=== PATIENT | female | born 1950 | race Caucasian/White ===

== ENCOUNTER 2018-06-19 14:51 | Emergency (ER) | payer MEDICARE ==
[~2018-06-19] VITALS: Ht 175.3 cm; Wt 90.7 kg
[2018-06-19] MEDS: TETANUS,DIPTH,PERTUSS P/F (BOOSTRIX) 0.5 ML VIAL IM ONE ×2 (13:37→16:37)
[~2018-06-19 14:51] MED LIST: ACHD5005 PO; BENZ100C18 PO; CYCL10TA9 PO; D-ME118S7 PO; DOXY100C42 PO; METH4TAB PO; PRD20T PO
[2018-06-19] MEDS ORDERED: ONDANSETRON 4 MG/2 ML (SDV) Z0FRAN ONE (14:59)
[2018-06-19] MEDS ORDERED: ONDANSETRON 4 MG/2 ML (SDV) Z0FRAN IVP ONE (15:15)
[2018-06-19] MEDS ORDERED: NS 250 ML (IVPB) BAG IV ONE (15:15)
[2018-06-19] MEDS ORDERED: IOHEXOL 350 MG/ML 100 ML (OMNIPAQUE 350) VIAL IV ONE (15:15)
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
[2018-06-19] MEDS ORDERED: GABA-488 (16:00)
[2018-06-19] MEDS ORDERED: TRAM50TA2 (16:00)
[2018-06-19] MEDS ORDERED: LOSA25TA6 (16:00)
[2018-06-19] MEDS ORDERED: OMEP20CA12 (16:00)
[2018-06-19] MEDS ORDERED: LOSA50TA7 (16:00)
[2018-06-19] MEDS ORDERED: TIZA2TAB3 (16:00)
[2018-06-19] MEDS ORDERED: DICL50TA6 (16:00)
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
[2018-06-19] MEDS: TETANUS,DIPTH,PERTUSS P/F (BOOSTRIX) 0.5 ML VIAL IM STA ×2 (16:34→16:35)
[2018-06-19 16:35] LABS: HEMOGLOBIN 13.6 G/DL (11.5-16.0); MEAN PLATELET VOLUME 10.5 FL (7.4-10.4); RED BLOOD COUNT 4.57 10^6/uL (4.35-5.85); RED CELL DISTRIBUTION WIDTH 13.2 % (10.0-14.5); WHITE BLOOD COUNT 6.7 10^3/uL (4.3-11.0)
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
[2018-06-19 16:42] LABS: FIBRIN DEGRADATION PRODUCTS 2.16 UG/ML (0.00-0.49); PROTHROMBIN TIME PATIENT 13.1 SEC (12.2-14.7)
[2018-06-19 16:52] LABS: ALANINE AMINOTRANSFERASE 28 U/L (0-55); ALBUMIN 3.7 GM/DL (3.2-4.5); ALKALINE PHOSPHATASE 68 U/L (40-136); BILIRUBIN,DIRECT 0.2 MG/DL (0.0-0.3); BILIRUBIN,INDIRECT 0.4 MG/DL; BILIRUBIN,TOTAL 0.6 MG/DL (0.1-1.0); BUN/CREATININE RATIO 12; CALCIUM 8.9 MG/DL (8.5-10.1); CARBON DIOXIDE 23 MMOL/L (21-32); CHLORIDE 107 MMOL/L (98-107); CREATINE KINASE 213 U/L (29-168); CREATININE SERUM 0.97 MG/DL (0.60-1.30); GFR ESTIMATED 57; GLUCOSE 98 MG/DL (70-105); MAGNESIUM 1.9 MG/DL (1.8-2.4); PHOSPHORUS 3.1 MG/DL (2.3-4.7); POTASSIUM 3.9 MMOL/L (3.6-5.0); SODIUM 141 MMOL/L (135-145); TOTAL PROTEIN 6.7 GM/DL (6.4-8.2)
[2018-06-19 17:08] VITALS: BP 146/84
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
== END 2018-06-19 17:08 | disposition short-term general hospital (02) ==
LOC: ER 14:51 → EDUNIT# 14:51 → ER 17:08
DX: S06.0X9A Concussion with loss of consciousness of unspecified duration, initial encounter (principal); S16.1XXA Strain of muscle, fascia and tendon at neck level, initial encounter; S39.012A Strain of muscle, fascia and tendon of lower back, initial encounter; S23.3XXA Sprain of ligaments of thoracic spine, initial encounter; S30.1XXA Contusion of abdominal wall, initial encounter; S40.021A Contusion of right upper arm, initial encounter; S60.511A Abrasion of right hand, initial encounter; S60.419A Abrasion of unspecified finger, initial encounter; I10 Essential (primary) hypertension; K21.9 Gastro-esophageal reflux disease without esophagitis; F17.210 Nicotine dependence, cigarettes, uncomplicated; Z90.13 Acquired absence of bilateral breasts and nipples; Z85.3 Personal history of malignant neoplasm of breast; Z92.21 Personal history of antineoplastic chemotherapy; Z23 Encounter for immunization; Z86.718 Personal history of other venous thrombosis and embolism; Z88.8 Allergy status to other drugs, medicaments and biological substances; Z91.048 Other nonmedicinal substance allergy status; V43.63XA Car passenger injured in collision with pick-up truck in traffic accident, initial encounter; Y92.411 Interstate highway as the place of occurrence of the external cause
CPT/HCPCS: 36415; 70450; 71045; 71260; 72125; 72128; 72131; 73060; 74177; 80048; 80076; 80320; 82550; 83605; 83735; 84100; 84484; 85027; 85379; 85384; 85610; 85730; 86850; 86900; 86901; 86920; 90715

== ENCOUNTER 2021-12-06 05:50 | Outpatient (CLI) | payer MEDICARE ==
[~2021-12-06] VITALS: Ht 175.3 cm; Wt 89.4 kg
[~2021-12-06 05:50] MED LIST changes: +CYCL10TA25 PO; -CYCL10TA9 PO; -D-ME118S7 PO; +DICL50TA6; +DOXY-311 PO; -DOXY100C42 PO; +GABA-488; +LOSA25TA41; +LOSA50TA63; +OMEP20CA18; +PROM118S5 PO; +TIZA-169; +TRM50T
[2021-12-06] MEDS ORDERED: ACHD5005 PO (09:37)
== END 2021-12-06 11:10 | disposition home or self-care (01) ==
LOC: PREOP 05:50 → EDSTATUS 13:00
PROVIDERS: ATTEND Surgery
DX: Z01.818 Encounter for other preprocedural examination (principal)

== ENCOUNTER 2021-12-13 10:21 | Day surgery (SDC) | payer MEDICARE ==
[~2021-12-13] VITALS: Ht 175 cm; Wt 89.4 kg
[2021-12-13] MEDS ORDERED: LACTATED RINGERS 1,000 ML IV ONE (10:29)
[2021-12-13] MEDS ORDERED: LACTATED RINGERS 1,000 ML IV STA (10:32)
[2021-12-13] MEDS ORDERED: HURRICAINE EXT TUBE (BENZOCAINE) XX PRN (10:45)
[2021-12-13 10:50] VITALS: BP 151/72
--- NOTE | 2021-12-13 10:54 | Progress Note-Pre Operative ---
Pre-Operative Progress Note H&P Reviewed The H&P was reviewed, patient examined and no changes noted. Time Seen by Provider: 10:53 Date H&P Reviewed: Dec 13, 2021 Time H&P Reviewed: 10:53 Pre-Operative Diagnosis: Chronic Gastritis, Screening colonoscopy DARWIN DRAKE DO Dec 13, 2021 10:54
[2021-12-13] MEDS ORDERED: MIDAZOLAM 2 MG/2 ML (VERSED) VIAL ONE (11:59)
[2021-12-13] MEDS ORDERED: PROPOFOL INJECTION 50 ML IV ONE (11:59)
[2021-12-13 12:35] VITALS: BP 150/66
[2021-12-13 12:40] VITALS: BP 138/64
[2021-12-13 12:42] VITALS: BP 138/64
--- NOTE | 2021-12-13 12:50 | Progress Note-Post Operative ---
Post-Operative Progess Note Surgeon (s)/Food Safety Director (s) Surgeon DARWIN DRAKE DO Food Safety Director: none Pre-Operative Diagnosis Chronic Gastritis, Screening colonoscopy Post-Operative Diagnosis Gastritis Hiatal hernia Polyps diverticula int hemorrhoids Procedure & Operative Findings Date of Procedure 12/13/21 Procedure Performed/Findings EGD with bx Colonoscopy with cold bx PROCEDURE NOTE: After informed consent was obtained, the patient was brought to the endoscopy suite, placed in bed in left lateral decubitus position. She was administered IV sedation by the SHOWROOM CONSULTANT who then monitored vitals the entire time, heart rate, blood pressure and pulse ox and the scope was inserted down the mouth through the esophagus into the stomach. On the way down, noted some mild esophagitis, took a picture, pushed into the stomach, pushed past the antrum into the duodenum. Duodenum looked good. Pulled back and did a biopsy of antrum, then retroflexed the scope, saw small hiatal hernia, took a picture of this and then pulled the scope into the GE junction, took another picture of the esophagitis and then did a biopsy of the GE junction. Pushed the scope back into the stomach, suctioned all the air out of the stomach. At this point pulled the scope up the esophagus and out the mouth. Switched camera, switched gloves, went down below, started the colonoscopy. Pushed all the way into about 140 cm to get all the way to cecum, took a picture of the appendiceal orifice, noted the ileocecal valve and then slowly withdrew the scope, insufflating to look circumferentially at the bray starting in the cecum, up the ascending colon to the hepatic flexure, then down the transverse colon. Saw a small flat polyp here and elected to remove with cold biopsy. Continued down to the splenic flexure, into the descending colon where I found another polyp; also removed with cold biopsy. Finally down into the sigmoid (took picture of diverticula) and into the rectum, retroflexed in the rectal vault, saw some minimal internal hemorrhoids and took a picture of this. The patient tolerated the procedure and she recovered in the endoscopy suite. Anesthesia Type IV sedation by SHOWROOM CONSULTANT Estimated Blood Loss Estimated blood loss (mL): scant Specimens/Packing Specimens Removed antral bx GE jxn bx Transverse colon polyp desc colon polyp DARIWN DRAKE DO Dec 13, 2021 12:50
--- NOTE | 2021-12-13 12:51 | Endoscopy Discharge Instruct ---
Endo Procedure/Findings Findings 1.: Gastritis 2.: Hiatal Hernia, Other Findings (Esophagitis) 3.: Polyp 4.: Diverticulosis, Internal Hemorrhoids Discharge Instructions - Activity: You might feel a little sleepy until tomorrow. This is due to the medicine you received to relax you. Until tomorrow, you should: NOT drive a car, operate machinery or power tools. NOT drink any alcoholic beverages. NOT make any important decisions or sign importortant papers. Do not return to work until tomorrow, unless otherwise instructed. Resume previous activities tomorrow. Diet: Start by taking liquids. If you tolerate liquids, advance to solid food. 1.: Colonscopy in 5 years 2.: EGD in 3 years Notify Physician - If you experience excessive bleeding, unusual abdominal pain, fever, or chest pain, contact your doctor immediately. DARWIN DRAKE DO Dec 13, 2021 12:51
[2021-12-13 13:00] VITALS: BP 158/56
--- NOTE | 2021-12-13 14:27 | Anesthesia-General Post-Op ---
MAC Patient Condition Mental Status/LOC: Same as Preop Cardiovascular: Satisfactory Nausea/Vomiting: Absent Respiratory: Satisfactory Pain: Controlled Complications: Absent Post Op Complications Complications None Follow Up Care/Instructions Patient Instructions None needed. Anesthesiology Discharge Order Discharge Order Patient is doing well, no complaints, stable vital signs, no apparent adverse anesthesia problems. No complications reported per nursing. KRISTOFER OGDEN CRNA Dec 13, 2021 14:27
== END 2021-12-13 13:15 | disposition home or self-care (01) ==
LOC: ENDO 10:21
PROVIDERS: ATTEND Surgery
DX: Z12.11 Encounter for screening for malignant neoplasm of colon (principal); D12.3 Benign neoplasm of transverse colon; D12.4 Benign neoplasm of descending colon; K29.50 Unspecified chronic gastritis without bleeding; K44.9 Diaphragmatic hernia without obstruction or gangrene; K57.30 Diverticulosis of large intestine without perforation or abscess without bleeding; K64.8 Other hemorrhoids; K21.00 Gastro-esophageal reflux disease with esophagitis, without bleeding; F17.210 Nicotine dependence, cigarettes, uncomplicated

== ENCOUNTER 2023-04-21 19:07 | Emergency (ER) | payer MEDICARE ==
[~2023-04-21] VITALS: Ht 175.2 cm; Wt 88.9 kg
[~2023-04-21 19:07] MED LIST changes: -DOXY-311 PO; +DOXY-444 PO
[2023-04-21] MEDS ORDERED: ACETAMINOPHEN 500 MG TABLET PO STA (19:14)
[2023-04-21] MEDS ORDERED: ASPIRIN 81 MG CHEWABLE TABLET PO STA (19:14)
[2023-04-21] MEDS ORDERED: CEFEPIME INJECTION 1,000 MG in NS (IVPB) 50 ML 50 ML IV ONE (19:15)
[2023-04-21] MEDS ORDERED: LACTATED RINGERS 1,000 ML IV ONE (19:15)
[2023-04-21] MEDS ORDERED: ONDANSETRON 4 MG/2 ML (SDV) Z0FRAN IVP ONE (19:15)
[2023-04-21] MEDS ORDERED: ACETAMINOPHEN 500 MG TABLET PO PRN (19:15)
[2023-04-21 19:19] LABS: BASOPHILS # (AUTO) 0.1 10^3/uL (0.0-0.1); BASOPHILS % (AUTO) 1 % (0-10); EOSINOPHILS # (AUTO) 0.2 10^3/uL (0.0-0.3); EOSINOPHILS % (AUTO) 4 % (0-10); HEMATOCRIT 43 % (35-52); HEMOGLOBIN 14.1 g/dL (11.5-16.0); LYMPHOCYTES # (AUTO) 0.7 10^3/uL (1.0-4.0); LYMPHOCYTES % (AUTO) 12 % (12-44); MEAN CORPUSCULAR HEMOGLOBIN 29 pg (25-34); MEAN CORPUSCULAR HGB CONC 33 g/dL (32-36); MEAN CORPUSCULAR VOLUME 88 fL (80-99); MEAN PLATELET VOLUME 10.7 fL (9.0-12.2); MONOCYTES # (AUTO) 0.6 10^3/uL (0.0-1.0); MONOCYTES % (AUTO) 9 % (0-12); NEUTROPHILS # (AUTO) 4.4 10^3/uL (1.8-7.8); NEUTROPHILS % (AUTO) 74 % (42-75); PLATELET COUNT 164 10^3/uL (130-400)
--- NOTE | 2023-04-21 19:22 | ED General ---
General Chief Complaint: Fever-Adult/Adol Stated Complaint: FEVER Source of Information: Patient, Old Records History of Present Illness Date Seen by Provider: Apr 21, 2023 Time Seen by Provider: 19:13 Initial Comments PT ARRIVES VIA [facility] FROM HOME PT STATES SHE BEGAN TO HAVE CHEST PAIN AT 1600 TODAY, SHE TOOK NTG X 1 ( HER 'S NTG) AND BY 1630 HER PAIN HAD GONE AND IS NOT HAVING PAIN NOW. SHORTLY AFTER TAKING NTG, SHE BEGAN TO HAVE SUBJECTIVE FEVER, SO TOOK 81 MG ASPIRIN FOR FEVER SHE ALSO BEGAN HAVING NAUSEA AT THE SAME TIME, NO VOMITING. NO DIARRHEA. NO ABDOMINAL PAIN SHE ALSO BEGAN HAVING A COUGH AND NASAL CONGESTION AT THE SAME TIME. NO SHORTNESS OF BREATH NO SWELLING IN LEGS/FEET OR PAIN IN CALVES NO SORE THROAT NO DIZZINESS OR SYNCOPE NO PALPITATIONS NO HISTORY OF CARDIAC PROBLEMS PT DOES SMOKE 1 PPD PT HAS HAD COVID VACCINE X 2. NO FLU VACCINE. PCP: [facility] Allergies and Home Medications Allergies Coded Allergies: levofloxacin (Verified Allergy, Unknown, 02/03/16) Uncoded Allergies: plastic tape (Allergy, Mild, 02/03/16) Patient Home Medication List Home Medication List Reviewed: Yes Diclofenac Sodium (Diclofenac Sodium) 50 Mg Tablet.dr (Reported) Entered as Reported by: KWAN TSE on 06/19/18 1600 Gabapentin (Gabapentin) 300 Mg Capsule, (Reported) Entered as Reported by: KWAN TSE on 06/19/18 1600 Hydrocodone/Acetaminophen (Hydrocodone-Acetamin 5-325 mg) 1 Each Tablet, 1 TAB PO TID, (Reported) Entered as Reported by: LUDIN MA on 12/06/21 0937 Omeprazole (Omeprazole) 20 Mg Capsule.dr (Reported) Entered as Reported by: KWAN TSE on 06/19/18 1600 Ondansetron (Ondansetron Odt) 4 Mg Tab.rapdis, 4 MG PO Q4H Prescribed by: ABNER VALENTIN on 04/21/232020 Tizanidine HCl (Tizanidine HCl) 2 Mg Tablet, (Reported) Entered as Reported by: KWAN TSE on 06/19/18 1600 Review of Systems Review of Systems Constitutional: see HPI, fever EENTM: see HPI, nose congestion Respiratory: see HPI, cough; No short of breath Cardiovascular: see HPI, chest pain Gastrointestinal: see HPI; No abdominal pain, No diarrhea; nausea; No vomiting Genitourinary: no symptoms reported Musculoskeletal: no symptoms reported Skin: no symptoms reported Psychiatric/Neurological: No Symptoms Reported Hematologic/Lymphatic: No Symptoms Reported Immunological/Allergic: no symptoms reported Past Xvfbeym-Bpguqq-Vswldy Hx Patient Social History Tobacco Use?: Yes Tobacco type used: Cigarettes Smoking Status: Current Everyday Smoker Substance use?: No Alcohol Use?: No Immunizations Up To Date First/Initial COVID19 Vaccinat: 12-06 Second COVID19 Vaccination Torsten: 01-06 Third COVID19 Vaccination Date: NO Seasonal Allergies Seasonal Allergies: No Past Medical History Surgeries: Yes (BACK, FOOT) Appendectomy, Breast, Gallbladder, Orthopedic Respiratory: No Cardiac: Yes (DVT OF LEG YEARS AGO. 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 Genitourinary: No Gastrointestinal: Yes Gastroesophageal Reflux, Diverticulosis, Hemorrhoids, Polyps, Gall Bladder Disease, Irritable Bowel Musculoskeletal: Yes (S/P BACK SURGERY) Arthritis, Chronic Back Pain Endocrine: No HEENT: Yes (WEARS GLASSES) Cancer: Yes (BILATERAL) Breast Did You Recieve Any Treatments: Yes What Type of Treatment Did You: Chemotherapy, Radiation, Surgical Intervention BREAST CANCER DX 2007--S/P BILATERAL MASTECTOMY, CHEMO AND RADIATION Psychosocial: No Integumentary: No Blood Disorders: No Adverse Reaction/Blood Tranf: No Family Medical History No Pertinent Family Hx SOCIAL HISTORY: -SMOKES 1 PPD -DENIES ETOH -DENIES DRUG USE PAST SURGICAL HISTORY: -CHOLECYSTECTOMY -APPENDECTOMY -BILATERAL MASTECTOMY -BACK SURGERY -WOUND DEBRIDEMENT LEFT LOWER LEG FROM SPIDER BITE -COLONOSCOPY/POLYPECTOMY/EGD 11/[address] DRAKE Physical Exam Vital Signs Vital Signs - First Documented 04/21/23 19:09 Temp 39.4 Pulse 89 B/P (MAP) 183/89 (120) Pulse Ox 96 O2 Delivery Room Air Capillary Refill : Height, Weight, BMI Height: 5'9.00" Weight: 200lbs. 0oz. 90.676169gj; 29.19 BMI Method:Stated General Appearance: No Apparent Distress, WD/WN, Other (REEKS OF CIGARETTES) HEENT: PERRL/EOMI, TMs Normal, Pharynx Normal, Moist Mucous Membranes, Other (NASAL CONGESTION) Neck: Normal Inspection Respiratory: Normal Breath Sounds, No Accessory Muscle Use, No Respiratory Distress Cardiovascular: Regular Rate, Rhythm, No Edema, No JVD, No Murmur, Normal Peripheral Pulses Gastrointestinal: Normal Bowel Sounds, Non Tender, Soft Back: No CVA Tenderness Extremity: Normal Inspection, Non Tender, No Calf Tenderness, No Pedal Edema Neurologic/Psychiatric: Alert, Oriented x3, No Motor/Sensory Deficits, Normal 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, 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 Norm as Tested Skin: Normal Color, Warm/Dry (VERY WARM); No Rash Focused Exam Sepsis Stage: Ruled Out Reason for ruling out sepsis: DOES NOT MEET CRITERIA Possible Source: Pulmonary Lactate Level 04/21/23 19:10: Lactic Acid Level 1.90 Time of Focused Exam: 20:15 Respiratory: Normal Breath Sounds, No Accessory Muscle Use, No Respiratory Distress Cardiovascular: Regular Rate, Rhythm, No Murmur Capillary Refill: Less Than 3 Seconds Skin: normal color, warm/dry Lactic Acid Level Laboratory Tests Test 04/21/23 19:10 Lactic Acid Level 1.90 MMOL/L (0.50-2.00) Within 3hrs of presentation: Admin fluids, Admin ABX, Blood cultures prior to ABX's, Focus exam, Lactate level Progress/Results/Core Measures Suspected Sepsis SIRS Temperature: Pulse: Respiratory Rate: Laboratory Tests 04/21/23 19:10: White Blood Count 6.0 Blood Pressure / Mean: 04/21/23 19:10: Lactic Acid Level 1.90 Laboratory Tests 04/21/23 19:10: Creatinine 1.00, INR Comment 1.0, Platelet Count 164, Total Bilirubin 0.4 Results/Orders Lab Results Laboratory Tests Test 04/21/23 19:10 04/21/23 19:13 04/21/23 19:20 Range/Units White Blood Count 6.0 4.3-11.0 10^3/uL Red Blood Count 4.88 3.80-5.11 10^6/uL Hemoglobin 14.1 11.5-16.0 g/dL Hematocrit 43 35-52 % Mean Corpuscular Volume 88 80-99 fL Mean Corpuscular Hemoglobin 29 25-34 pg Mean Corpuscular Hemoglobin Concent 33 32-36 g/dL Red Cell Distribution Width 13.0 10.0-14.5 % Platelet Count 164 130-400 10^3/uL Mean Platelet Volume 10.7 9.0-12.2 fL Immature Granulocyte % (Auto) 0 % Neutrophils (%) (Auto) 74 42-75 % Lymphocytes (%) (Auto) 12 12-44 % Monocytes (%) (Auto) 9 0-12 % Eosinophils (%) (Auto) 4 0-10 % Basophils (%) (Auto) 1 0-10 % Neutrophils # (Auto) 4.4 1.8-7.8 10^3/uL Lymphocytes # (Auto) 0.7 L 1.0-4.0 10^3/uL Monocytes # (Auto) 0.6 0.0-1.0 10^3/uL Eosinophils # (Auto) 0.2 0.0-0.3 10^3/uL Basophils # (Auto) 0.1 0.0-0.1 10^3/uL Immature Granulocyte # (Auto) 0.0 0.0-0.1 10^3/uL Erythrocyte Sedimentation Rate 11 0-30 MM/HR Prothrombin Time 13.2 12.2-14.7 SEC INR Comment 1.0 0.8-1.4 Activated Partial Thromboplast Time 31 24-35 SEC Sodium Level 139 135-145 MMOL/L Potassium Level 3.8 3.6-5.0 MMOL/L Chloride Level 108 H 98-107 MMOL/L Carbon Dioxide Level 20 L 21-32 MMOL/L Anion Gap 11 5-14 MMOL/L Blood Urea Nitrogen 13 7-18 MG/DL Creatinine 1.00 0.60-1.30 MG/DL Estimat Glomerular Filtration Rate 61 BUN/Creatinine Ratio 13 Glucose Level 99 70-105 MG/DL Lactic Acid Level 1.90 0.50-2.00 MMOL/L Calcium Level 9.1 8.5-10.1 MG/DL Corrected Calcium 9.2 8.5-10.1 MG/DL Magnesium Level 1.9 1.6-2.4 MG/DL Total Bilirubin 0.4 0.1-1.0 MG/DL Aspartate Amino Transf (AST/SGOT) 23 5-34 U/L Alanine Aminotransferase (ALT/SGPT) 16 0-55 U/L Alkaline Phosphatase 89 40-136 U/L Total Creatine Kinase 160 29-168 U/L Creatine Kinase MB 1.3 <6.6 NG/ML Myoglobin 60.9 10.0-92.0 NG/ML C-Reactive Protein High Sensitivity 0.22 0.00-0.50 MG/DL B-Type Natriuretic Peptide 81.9 <100.0 PG/ML Total Protein 7.5 6.4-8.2 GM/DL Albumin 3.9 3.2-4.5 GM/DL Amylase Level 37 25-125 U/L Lipase 27 8-78 U/L Influenza Type A (RT-PCR) Not Detected Not Detecte Influenza Type B (RT-PCR) Not Detected Not Detecte SARS-CoV-2 RNA (RT-PCR) Detected H Not Detecte Urine Color YELLOW Urine Clarity CLEAR Urine pH 6.0 5-9 Urine Specific Bascom 1.015 L 1.016-1.022 Urine Protein NEGATIVE NEGATIVE Urine Glucose (UA) NEGATIVE NEGATIVE Urine Ketones NEGATIVE NEGATIVE Urine Nitrite NEGATIVE NEGATIVE Urine Bilirubin NEGATIVE NEGATIVE Urine Urobilinogen 0.2 < = 1.0 MG/DL Urine Leukocyte Esterase NEGATIVE NEGATIVE Urine RBC (Auto) 1+ H NEGATIVE Urine RBC NONE /HPF Urine WBC 0-2 /HPF Urine Squamous Epithelial Cells 5-10 /HPF Urine Crystals NONE /LPF Urine Bacteria FEW H /HPF Urine Casts PRESENT /LPF Urine Hyaline Casts RARE /LPF Urine Mucus NEGATIVE /LPF Urine Culture Indicated CULTURE PENDING My Orders Orders - ABNER VALENTIN DO Covid 19 Inhouse Test (04/21/23 19:10) Cbc With Automated Diff (04/21/23 19:10) Comprehensive Metabolic Panel (04/21/23 19:10) Blood Culture (04/21/23 19:10) Sputum Culture (04/21/23 19:10) Urinalysis (04/21/23 19:10) Urine Culture (04/21/23 19:10) Protime With Inr (04/21/23 19:10) Partial Thromboplastin Time (04/21/23 19:10) Chest 1 View, Ap/Pa Only (04/21/23 19:10) Acetaminophen Tablet (Acetaminophen Ta (04/21/23 19:15) Ed Iv/Invasive Line Start (04/21/23 19:10) Ed Iv/Invasive Line Start (04/21/23 19:10) Vital Signs Adult Sepsis Patie Q15M (04/21/23 19:10) O2 (04/21/23 19:10) Remove Rings In Anticipation O (04/21/23 19:10) Lactic Acid Analyzer (04/21/23 19:10) Lactated Ringers (Lr 1000 Ml Iv Solution (04/21/23 19:15) Cefepime Injection (Cefepime Injection) (04/21/23 19:15) Influenza A And B By Pcr (04/21/23 19:10) Amylase (04/21/23 19:14) Bnp Queenie (04/21/23 19:14) Creatine Kinase (04/21/23 19:14) Creatine Kinase Mb (04/21/23 19:14) Hs C Reactive Protein (04/21/23 19:14) Lipase (04/21/23 19:14) Magnesium (04/21/23 19:14) Erythrocyte Sedimentation Rate (04/21/23 19:14) Myoglobin Serum (04/21/23 19:14) Ed Iv/Invasive Line Start (04/21/23 19:14) Ondansetron Injection (Zofran Injectio (04/21/23 19:15) Acetaminophen Tablet (Acetaminophen Ta (04/21/23 19:14) Aspirin Chewable Tablet (Aspirin Chewabl (04/21/23 19:14) Ekg Tracing (04/21/23 19:27) Monitor-Rhythm Ecg Trace Only (04/21/23 19:27) Ibuprofen Tablet (Motrin Tablet) (04/21/23 20:30) Rx-Nirmatrelvir/Ritonavir(Eua) (Rx-Paxlo (04/21/23 20:30) Rx-Ondansetron Po (Rx-Zofran Po) (04/21/23 20:17) Medications Given in ED Current Medications Medications Dose Ordered Sig/Holly Route Start Time Stop Time Status Last Admin Dose Admin Cefepime HCl 1000 mg/Sodium Chloride 50 ml @ 100 mls/hr ONCE ONCE IV 04/21/23 19:15 04/21/23 19:44 DC 04/21/23 19:42 100 MLS/HR Ibuprofen 800 mg ONCE ONCE PO 04/21/23 20:30 04/21/23 20:31 DC 04/21/23 20:39 800 MG Lactated Ringer's 1,000 ml @ 0 mls/hr Q0M ONCE IV 04/21/23 19:15 04/21/23 19:16 DC 04/21/23 20:06 0 MLS/HR Ondansetron HCl 4 mg ONCE ONCE IVP 04/21/23 19:15 04/21/23 19:16 DC 04/21/23 19:42 4 MG Vital Signs/I&O 04/21/23 19:09 Temp 39.4 Pulse 89 B/P (MAP) 183/89 (120) Pulse Ox 96 O2 Delivery Room Air Capillary Refill : Progress Note : Progress Note VITALS ON ARRIVAL: TEMP 39.4=103, HR 89, BP 183/89, RR 25, O2 SAT 96% ON ROOM AIR PPE WORN CHEST PAIN AND SEPSIS PROTOCOLS INITIATED COVID AND FLU TESTING DONE GIVEN: -ASPIRIN -TYLENOL -CEFEPIME -IV FLUIDS -ZOFRAN -MOTRIN SENT HOME WITH PAXLOVID AND ZOFRAN PERTINENT LABS: -CBC IS NORMAL WITH WBC 6.0 -CMP IS NORMAL -TROPONIN AND BNP ARE NEGATIVE/NORMAL -LACTIC ACID IS NORMAL CXR DOES NOT SHOW ANY ACUTE PROCESS EKG WITH LBBB--NO PRIOR FOR COMPARISON. COVID TEST POSITIVE UNEVENTFUL ER STAY PT HAD NO COMPLAINTS OF CHEST PAIN AT ANY TIME DURING ER STAY NO SHORTNESS OF BREATH NO COUGH NO HYPOXIA TEMP, BP AND HEART RATE DOWN AT TIME OF DISMISSAL DISCUSSED TEST RESULTS, ANTICIPATED COURSE, SYMPTOMATIC TREATMENT,MEDICATIONS, QUARANTINE, NEED FOR FOLLOW UP AND RETURN PRECAUTIONS ECG Initial ECG Impression Date: Apr 21, 2023 Initial ECG Impression Time: 19:28 Initial ECG Rate: 83 Initial ECG Rhythm: Normal Sinus (LBBB) Initial ECG Intervals MO 147 QRS 145 QT/QTC 378/418 Initial ECG Comparisson: No Previous ECG Available Comment INTERPRETED BY ME Diagnostic Imaging Comments CXR--PER RADIOLOGIST REPORT AT 1951 FINDINGS: Heart is enlarged. Pulmonary vasculature normal. Lungs and pleural spaces clear. IMPRESSION: Cardiomegaly with no acute cardiopulmonary process. Reviewed: Reviewed by Me Departure Impression Primary Impression: COVID-19 virus infection Disposition: 01 HOME, SELF-CARE Condition: Stable Departure-Patient Inst. Decision time for Depature: 20:19 Referrals: ARGENTINA LUO MD (PCP/Family) Primary Care Physician Patient Instructions: COVID-19 ED, Nirmatrelvir and Ritonavir FDA Fact Sheet Add. Discharge Instructions: LOTS OF CLEAR LIQUIDS--WATER, BROTH, JELLO, GATORADE TYLENOL 1 GRAM PLUS MOTRIN 800 MG 4 TIMES A DAY FOR PAIN OR FEVER OVER THE COUNTER MEDICATIONS FOR COUGH AND CONGESTION SUCH MUCINEX DM TAKE PAXLOVID PRESCRIBED QUARANTINE YOURSELF AND ALL HOUSEHOLD CONTACTS FOR 10 DAYS RETURN TO ER IF YOU DEVELOP DIFFICULTY BREATHING OR IF YOU CANNOT KEEP DOWN LIQUIDS OR ANY WORSENING OF SYMPTOMS All discharge instructions reviewed with patient and/or family. Voiced understanding. Scripts Ondansetron (Ondansetron Odt) 4 Mg Tab.rapdis 4 MG PO Q4H for Nausea/Vomiting, #10 TAB Prov: ABNER VALENTIN DO 04/21/23 ABNER VALENTIN DO Apr 21, 2023 19:22
[2023-04-21 19:32] LABS: ALBUMIN 3.9 GM/DL (3.2-4.5); POTASSIUM 3.8 MMOL/L (3.6-5.0)
[2023-04-21 19:34] LABS: CALCIUM 9.1 MG/DL (8.5-10.1)
[2023-04-21 19:35] LABS: TOTAL PROTEIN 7.5 GM/DL (6.4-8.2)
[2023-04-21 19:37] LABS: BILIRUBIN,TOTAL 0.4 MG/DL (0.1-1.0); PROTHROMBIN TIME PATIENT 13.2 SEC (12.2-14.7)
[2023-04-21 19:41] LABS: MAGNESIUM 1.9 MG/DL (1.6-2.4)
[2023-04-21 19:45] LABS: ERYTHROCYTE SEDIMENTATION RATE 11 MM/HR (0-30)
[2023-04-21 19:49] LABS: CREATINE KINASE MB 1.3 NG/ML (<6.6)
--- NOTE | 2023-04-21 19:50 | Diagnostic Imaging Report ---
INDICATION: Fever. EXAMINATION: Chest, 04/21/2023. COMPARISON: 06/19/2018. FINDINGS: Heart is enlarged. Pulmonary vasculature normal. Lungs and pleural spaces clear. IMPRESSION: Cardiomegaly with no acute cardiopulmonary process. Dictated by: Dictated on workstation # [id number]
[2023-04-21 19:51] LABS: CLARITY,URINE CLEAR; COLOR,URINE YELLOW; GLUCOSE, URINE (UA) NEGATIVE (NEGATIVE); PROTEIN,URINE NEGATIVE (NEGATIVE)
[2023-04-21 19:52] LABS: BACTERIA,URINE FEW /HPF; BILIRUBIN,URINE NEGATIVE (NEGATIVE); HYALINE CASTS, URINE RARE /LPF; KETONES,URINE NEGATIVE (NEGATIVE); LEUKOCYTE ESTERASE ,URINE NEGATIVE (NEGATIVE); NITRITE,URINE NEGATIVE (NEGATIVE); WBC,URINE 0-2 /HPF
[2023-04-21] MEDS ORDERED: RX-ONDANSETRON 4 MG ODT (ZOFRAN) PPK #4 PO STA (20:17)
[2023-04-21] MEDS ORDERED: ONDA4TAB11 PO (20:21)
[2023-04-21] MEDS ORDERED: RX-NIRMATRELVIR/RITONAVIR (PAXLOVID) #30 TABS PO SCH (20:30)
[2023-04-21] MEDS ORDERED: IBUPROFEN 800 MG TABLET PO ONE (20:30)
[2023-04-21 20:49] VITALS: BP 128/48
== END 2023-04-21 20:53 | disposition home or self-care (01) ==
LOC: EDUNIT# 19:07 → ER 19:08
DX: U07.1 COVID-19 (principal); R50.9 Fever, unspecified; R09.81 Nasal congestion; R05.9 Cough, unspecified; R11.0 Nausea; R07.9 Chest pain, unspecified; I44.7 Left bundle-branch block, unspecified; F17.210 Nicotine dependence, cigarettes, uncomplicated; Z88.1 Allergy status to other antibiotic agents
CPT/HCPCS: 36415; 71045; 80053; 81000; 82150; 82550; 82553; 83605; 83690; 83735; 83874; 83880; 85025; 85610; 85652; 85730; 86141; 87040; 87088; 87636; 93005; 93041; 96361; 96365; 96375

== ENCOUNTER 2023-08-23 14:48 | Observation (INO) | payer MEDICARE ==
[~2023-08-23] VITALS: Ht 175.3 cm; Wt 86.6 kg
[~2023-08-23 14:48] MED LIST changes: -GABA-488; +GABA-488 PO; -OMEP20CA18; +OMEP20CA18 PO; +ONDA4TAB11 PO
[2023-08-23] MEDS ORDERED: ASPIRIN 81 MG CHEWABLE TABLET PO ONE (15:00)
--- NOTE | 2023-08-23 15:02 | ED Chest Pain ---
General Stated Complaint: CHEST PAINS Source: patient Exam Limitations: no limitations History of Present Illness Date Seen by Provider: Aug 23, 2023 Time Seen by Provider: 14:59 Initial Comments Patient is a 73-year-old female who presents ED for chest pain. Chest pain started around 1:25 PM. Patient was watching TV and sitting on the couch at the time. She reports this pressure to the right sided chest that radiates to the back and right sided neck. She took a nitro at home which did seem to improve the pain after 15 minutes. Patient was continued having pain and route with EMS. Did receive a second sublingual nitro with improvement of pain. She is currently pain-free. She had associated shortness of breath. She denies history of similar type pain. She states she has had a cardiac cath around 10 years ago. Does not follow telephone sterilizer. She denies history of hypertension, diabetes, high cholesterol. She does smoke. Denies of any flulike symptoms. Denies of any leg swelling, leg pain or recent travels or surgeries. Allergies and Home Medications Allergies Coded Allergies: levofloxacin (Verified Allergy, Unknown, 02/03/16) Uncoded Allergies: plastic tape (Allergy, Mild, 02/03/16) Patient Home Medication List Home Medication List Reviewed: Yes Diclofenac Sodium (Diclofenac Sodium) 50 Mg Tablet., (Reported) Entered as Reported by: KWAN TSE on 06/19/181599 Gabapentin (Gabapentin) 300 Mg Capsule, (Reported) Entered as Reported by: KWAN TSE on 06/19/18 1600 Hydrocodone/Acetaminophen (Hydrocodone-Acetamin 5-325 mg) 1 Each Tablet, 1 TAB PO TID, (Reported) Entered as Reported by: LUDIN MA on 12/06/21 0937 Omeprazole (Omeprazole) 20 Mg Capsule.dr (Reported) Entered as Reported by: KWAN TSE on 06/19/18 1600 Ondansetron (Ondansetron Odt) 4 Mg Tab.rapdis, 4 MG PO Q4H Prescribed by: ABNER VALENTIN on 04/21/232020 Tizanidine HCl (Tizanidine HCl) 2 Mg Tablet, (Reported) Entered as Reported by: KWAN TSE on 06/19/181599 Review of Systems Review of Systems Constitutional: No chills, No diaphoresis, No weakness EENTM: No Blurred Vision, No Double Vision, No Eye Pain Respiratory: Denies Cough, Denies Orthopnea; Shortness of Air Cardiovascular: Chest Pain Gastrointestinal: Denies Abdominal Pain, Denies Diarrhea, Denies Nausea, Denies Vomiting Genitourinary: Denies Burning, Denies Discharge, Denies Drainage Musculoskeletal: No back pain, No joint pain Skin: No change in color, No change in hair/nails All Other Systems Reviewed Negative Unless Noted: Yes Past Iqiwxih-Mjearq-Wuvqlh Hx Immunizations Up To Date First/Initial COVID19 Vaccinat: 12-06 Second COVID19 Vaccination Torsten: 01-06 Third COVID19 Vaccination Date: NO Seasonal Allergies Seasonal Allergies: No Past Medical History Surgeries: Yes (BACK, FOOT) Appendectomy, Breast, Gallbladder, Orthopedic Respiratory: No Cardiac: Yes (DVT OF LEG YEARS AGO. 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 Genitourinary: No Gastrointestinal: Yes Gastroesophageal Reflux, Diverticulosis, Hemorrhoids, Polyps, Gall Bladder Disease, Irritable Bowel Musculoskeletal: Yes (S/P BACK SURGERY) Arthritis, Chronic Back Pain Endocrine: No HEENT: Yes (WEARS GLASSES) Cancer: Yes (BILATERAL) Breast Did You Recieve Any Treatments: Yes What Type of Treatment Did You: Chemotherapy, Radiation, Surgical Intervention Psychosocial: No Integumentary: No Blood Disorders: No Adverse Reaction/Blood Tranf: No Family Medical History No Pertinent Family Hx SOCIAL HISTORY: -SMOKES 1 PPD -DENIES ETOH -DENIES DRUG USE PAST SURGICAL HISTORY: -CHOLECYSTECTOMY -APPENDECTOMY -BILATERAL MASTECTOMY -BACK SURGERY -WOUND DEBRIDEMENT LEFT LOWER LEG FROM SPIDER BITE -COLONOSCOPY/POLYPECTOMY/EGD 11/[address] DRAKE Physical Exam Vital Signs Vital Signs - First Documented 08/23/23 14:55 Temp 36.5 Pulse 69 Resp 16 B/P (MAP) 184/83 (116) Pulse Ox 98 Capillary Refill : Height, Weight, BMI Height: 5'9.00" Weight: 200lbs. 0oz. 90.205935ol; 28.00 BMI Method:Stated General Appearance: No Apparent Distress, WD/WN HEENT: PERRL/EOMI, TMs Normal, Normal ENT Inspection, Pharynx Normal Neck: Full Range of Motion, Normal Inspection, Non Tender, Supple Respiratory: Chest Non Tender, Lungs Clear, Normal Breath Sounds, No Accessory Muscle Use, No Respiratory Distress Cardiovascular: Regular Rate, Rhythm, No Edema, No Gallop, No JVD Gastrointestinal: Normal Bowel Sounds, No Organomegaly, No Pulsatile Mass, Non Tender Extremity: Normal Capillary Refill, Normal Inspection, Normal Range of Motion Neurologic/Psychiatric: Alert, Oriented x3, No Motor/Sensory Deficits, Normal 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, 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 Norm as 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 Skin: Normal Color, Warm/Dry Progress/Results/Core Measures Results/Orders Lab Results Laboratory Tests Test 08/23/23 15:00 Range/Units White Blood Count 6.1 4.3-11.0 10^3/uL Red Blood Count 4.86 3.80-5.11 10^6/uL Hemoglobin 14.2 11.5-16.0 g/dL Hematocrit 44 35-52 % Mean Corpuscular Volume 90 80-99 fL Mean Corpuscular Hemoglobin 29 25-34 pg Mean Corpuscular Hemoglobin Concent 33 32-36 g/dL Red Cell Distribution Width 12.3 10.0-14.5 % Platelet Count 198 130-400 10^3/uL Mean Platelet Volume 10.1 9.0-12.2 fL Immature Granulocyte % (Auto) 0 % Neutrophils (%) (Auto) 50 42-75 % Lymphocytes (%) (Auto) 38 12-44 % Monocytes (%) (Auto) 8 0-12 % Eosinophils (%) (Auto) 3 0-10 % Basophils (%) (Auto) 1 0-10 % Neutrophils # (Auto) 3.0 1.8-7.8 10^3/uL Lymphocytes # (Auto) 2.3 1.0-4.0 10^3/uL Monocytes # (Auto) 0.5 0.0-1.0 10^3/uL Eosinophils # (Auto) 0.2 0.0-0.3 10^3/uL Basophils # (Auto) 0.1 0.0-0.1 10^3/uL Immature Granulocyte # (Auto) 0.0 0.0-0.1 10^3/uL Prothrombin Time 12.7 12.2-14.7 SEC INR Comment 0.9 0.8-1.4 Activated Partial Thromboplast Time 23 L 24-35 SEC Sodium Level 140 135-145 MMOL/L Potassium Level 3.7 3.6-5.0 MMOL/L Chloride Level 106 98-107 MMOL/L Carbon Dioxide Level 26 21-32 MMOL/L Anion Gap 8 5-14 MMOL/L Blood Urea Nitrogen 14 7-18 MG/DL Creatinine 0.91 0.60-1.30 MG/DL Estimat Glomerular Filtration Rate 67 BUN/Creatinine Ratio 15 Glucose Level 145 H 70-105 MG/DL Calcium Level 8.9 8.5-10.1 MG/DL Corrected Calcium 9.2 8.5-10.1 MG/DL Magnesium Level 2.0 1.6-2.4 MG/DL Total Bilirubin 0.3 0.1-1.0 MG/DL Aspartate Amino Transf (AST/SGOT) 21 5-34 U/L Alanine Aminotransferase (ALT/SGPT) 17 0-55 U/L Alkaline Phosphatase 85 40-136 U/L Myoglobin 41.6 10.0-92.0 NG/ML Troponin I < 0.028 <0.028 NG/ML B-Type Natriuretic Peptide 122.6 H <100.0 PG/ML Total Protein 7.4 6.4-8.2 GM/DL Albumin 3.6 3.2-4.5 GM/DL Lipase 43 8-78 U/L My Orders Orders - ODILON QUINTANA PA Ekg Tracing (08/23/23 14:50) Cbc And Automated Diff (08/23/23 14:56) Magnesium (08/23/23 14:56) Chest 1 View, Ap/Pa Only (08/23/23 14:56) Ekg Tracing (08/23/23 14:56) Comprehensive Metabolic Panel (08/23/23 14:56) Myoglobin Serum (08/23/23 14:56) Protime With Inr (08/23/23 14:56) Partial Thromboplastin Time (08/23/23 14:56) O2 (08/23/23 14:56) Monitor-Rhythm Ecg Trace Only (08/23/23 14:56) Ed Iv/Invasive Line Start (08/23/23 14:56) Lipase (08/23/23 14:56) Bnp Queenie (08/23/23 14:56) Troponin I Queenie (08/23/23 14:56) Aspirin Chewable Tablet (Aspirin Chewabl (08/23/23 15:00) Metoprolol Succinate (Xl) Tab (Metoprolo (08/23/23 16:00) Ed Admission (Communication) (08/23/23 16:20) Vital Signs/I&O 08/23/23 14:55 Temp 36.5 Pulse 69 Resp 16 B/P (MAP) 184/83 (116) Pulse Ox 98 Comment Sinus rhythm, left bundle branch block, 59 bpm, QRS duration 145 MS, QTc 474 MS. Departure Communication (PCP) History of hypertension, smoking family cardiac history presents ED for acute onset of chest pain at home. Right-sided chest pain pressure radiating to the neck. Associate shortness of breath. Differential diagnoses ACS, CHF, pneumonia, pneumothorax, pericarditis, pleurisy, GERD, esophagitis. Sublingual nitro at home with some improvement. Did receive a second dose of sublingual nitro by EMS. Pain-free on arrival. Cardiac workup was initiated. She was not tachycardic or hypoxic. She was hypertensive. She denies of any current blood pressure medication. She did receive a full aspirin no aspirin was given. EKG shows sinus rhythm with left bundle branch block. This appears to be chronic after reviewing previous EKG in April. CBC, CMP was grossly unremarkable. Normal troponin. BNP 122. Chest x-ray was negative for pneumonia, pneumot horax, pleural effusion. No leg pain, leg swelling. She is not currently on anticoagulant. She states she had a cardiac cath 10 years ago and does not follow telephone sterilizer. Remained pain-free. Concerning symptoms today are cardiac in nature. Heart score 4. Discussed patient with Dr. Cm telephone sterilizer at this time recommend metoprolol XL 50 mg daily and aspirin 81 mg daily and sublingual nitro as needed. Does not recommend NPO. Further cardiac workup. Patient was discussed with hospitalist Dr. Avina Impression Primary Impression: Chest pain Disposition: ADMITTED INPATIENT Condition: Stable Admissions Decision to Admit Reason: Admit from ER (General) Decision to Admit/Date: Aug 23, 2023 Time/Decision to Admit Time: 15:54 Departure-Patient Inst. Referrals: ARGENTINA LUO MD (PCP/Family) Primary Care Physician ODILON QUINTANA Aug 23, 2023 15:02
[2023-08-23 15:07] LABS: BASOPHILS # (AUTO) 0.1 10^3/uL (0.0-0.1); BASOPHILS % (AUTO) 1 % (0-10); EOSINOPHILS # (AUTO) 0.2 10^3/uL (0.0-0.3); EOSINOPHILS % (AUTO) 3 % (0-10); HEMATOCRIT 44 % (35-52); HEMOGLOBIN 14.2 g/dL (11.5-16.0); LYMPHOCYTES # (AUTO) 2.3 10^3/uL (1.0-4.0); LYMPHOCYTES % (AUTO) 38 % (12-44); MEAN CORPUSCULAR HEMOGLOBIN 29 pg (25-34); MEAN CORPUSCULAR HGB CONC 33 g/dL (32-36); MEAN CORPUSCULAR VOLUME 90 fL (80-99); MEAN PLATELET VOLUME 10.1 fL (9.0-12.2); MONOCYTES # (AUTO) 0.5 10^3/uL (0.0-1.0); MONOCYTES % (AUTO) 8 % (0-12); NEUTROPHILS % (AUTO) 50 % (42-75); PLATELET COUNT 198 10^3/uL (130-400); WHITE BLOOD COUNT 6.1 10^3/uL (4.3-11.0)
[2023-08-23 15:16] LABS: ALBUMIN 3.6 GM/DL (3.2-4.5)
[2023-08-23 15:17] LABS: CHLORIDE 106 MMOL/L (98-107); POTASSIUM 3.7 MMOL/L (3.6-5.0); SODIUM 140 MMOL/L (135-145)
[2023-08-23 15:18] LABS: CALCIUM 8.9 MG/DL (8.5-10.1)
[2023-08-23 15:19] LABS: GLUCOSE 145 MG/DL (70-105); TOTAL PROTEIN 7.4 GM/DL (6.4-8.2)
[2023-08-23 15:20] LABS: CARBON DIOXIDE 26 MMOL/L (21-32); INR 0.9 (0.8-1.4); PROTHROMBIN TIME PATIENT 12.7 SEC (12.2-14.7)
[2023-08-23 15:21] LABS: BILIRUBIN,TOTAL 0.3 MG/DL (0.1-1.0)
[2023-08-23 15:22] LABS: ALKALINE PHOSPHATASE 85 U/L (40-136)
[2023-08-23 15:23] LABS: CREATININE SERUM 0.91 MG/DL (0.60-1.30); GFR ESTIMATED 67
[2023-08-23 15:24] LABS: BUN/CREATININE RATIO 15
[2023-08-23 15:26] LABS: ALANINE AMINOTRANSFERASE 17 U/L (0-55)
[2023-08-23 15:27] LABS: LIPASE 43 U/L (8-78)
--- NOTE | 2023-08-23 15:46 | Diagnostic Imaging Report ---
CLINICAL INDICATION: Patient with chest pain. EXAM: Portable chest x-ray, upright view. COMPARISON: Chest x-ray dated 04/21/2023. FINDINGS: Lungs/pleura: Lungs are clear. There is no pneumothorax. There is no pleural effusion. Mediastinum: Unremarkable. Pulmonary vasculature: Unremarkable. Heart: Unremarkable. Bones/extrathoracic soft tissue: Unremarkable. IMPRESSION: There is no radiographic evidence of acute cardiopulmonary process. Dictated by: Dictated on workstation # [id number]
[2023-08-23] MEDS ORDERED: ACETAMINOPHEN 325 MG TABLET PO ONE (17:00)
--- NOTE | 2023-08-23 17:49 | Consultation ---
MITCH MCCLELLAND 08/23/23 1749: HPI History of Present Illness: Source: patient Time Seen by Provider: 17:50 Attending Physician Cristhian Valadez MD PCP Admitting Physician: Trena Gibbs MD Attending Physician: Trena Gibbs MD Consult Patient presented to the ED after she was brought by EMS due to chest pain. Chest pain started at 1:25 while she was sitting on the couch watching tv. Pain was sever 10/10 sharp stabbing pain under the right chest that radiated to the right shoulder and chin. Patient took one of her 's nitroglycerin shortly after pain started. After 15 minutes of pain, she developed chest tightness. She still had chest pain and tightness when EMS came where she was given another nitroglycerin which caused the pain to subside and after the while the chest tightness also subsided. Patient said she had similar symptoms over 20 years ago and was told by her PCP that it was due to anxiety and not cardiac related. She also mentioned that she had chest pain 10 years and presented to [facility] in [place]. She was having leg swelling and pain at the time and she was told she had a clot but could not remember what she was diagnose with or how she was treated. She did remember that she had a heart cath done during that admission She has a history of leg cramps but in the last 2 weeks they happen almost every day in the evening. cramping subsides with tizanidine use. She denies having symptoms of leg swelling or calf tenderness recently. Patient reports some stress at home. She has to take care of her and herself at the same time. broke his hip 2 years ago and she has been taking care of him ever since and reports that he stresses her out most days. During interview, patient had sudden right chest pain that radiated to the back that lasted for a few minutes before subsiding that she said was similar to the pain she experienced prior. Date of Admission Aug 23, 2023 at 17:35 Home Medications Home Medications Reviewed patient Home Medication Reconciliation performed by pharmacy medication reconciliations facility maintenance technician and/or nursing. Patients Allergies have been reviewed. Allergies Coded Allergies: levofloxacin (Verified Allergy, Unknown, 02/03/16) Uncoded Allergies: plastic tape (Allergy, Mild, 02/03/16) JMT-Utanic-Pjzzcs Hx Patient Social History Smoking Status: Current Everyday Smoker (1 PPD ) 2nd Hand Smoke Exposure: Yes Recent Hopitalizations: No Alcohol Use?: No Tobacco type used: Cigarettes Immunizations Up To Date First/Initial COVID19 Vaccinat: 12-06 Second COVID19 Vaccination Torsten: 01-06 Third COVID19 Vaccination Date: NO Past Medical History had a Hx of breast cancer (cancer free in 2011) ruptured disk in her back PSH bilateral mastectomy cholecystecotmy appendectomy kiphoplasty foot surgery Family Medical History Significant Family History: Heart Disease Other Significan Family Hx: SOCIAL HISTORY: -SMOKES 1 PPD -DENIES ETOH -DENIES DRUG USE PAST SURGICAL HISTORY: -CHOLECYSTECTOMY -APPENDECTOMY -BILATERAL MASTECTOMY -BACK SURGERY -WOUND DEBRIDEMENT LEFT LOWER LEG FROM SPIDER BITE -COLONOSCOPY/POLYPECTOMY/EGD 11/[address] DRAKE Review of Systems ([facility]) Constitutional: No chills, No diaphoresis; dizziness; No fever EENTM: No hearing loss, No ear pain, No blurred vision, No double vision, No eye pain, No vision loss Respiratory: No cough, No short of breath Cardiovascular: chest pain; No palpitations Gastrointestinal: No abdominal pain, No constipation, No diarrhea; nausea; No vomiting Genitourinary: No dysuria, No frequency Musculoskeletal: joint pain (pain in her hand), muscle cramps (been getting leg cramp for the last 2 weeks in the evenings.) Reviewed Test Results Reviewed Test Results Lab Laboratory Tests 08/23/23 15:00: White Blood Count 6.1, Red Blood Count 4.86, Hemoglobin 14.2, Hematocrit 44, Mean Corpuscular Volume 90, Mean Corpuscular Hemoglobin 29, Mean Corpuscular Hemoglobin Concent 33, Red Cell Distribution Width 12.3, Platelet Count 198, Mean Platelet Volume 10.1, Immature Granulocyte % (Auto) 0, Neutrophils (%) (Auto) 50, Lymphocytes (%) (Auto) 38, Monocytes (%) (Auto) 8, Eosinophils (%) (Auto) 3, Basophils (%) (Auto) 1, Neutrophils # (Auto) 3.0, Lymphocytes # (Auto) 2.3, Monocytes # (Auto) 0.5, Eosinophils # (Auto) 0.2, Basophils # (Auto) 0.1, Immature Granulocyte # (Auto) 0.0, Prothrombin Time 12.7, INR Comment 0.9, Activated Partial Thromboplast Time 23L, Sodium Level 140, Potassium Level 3.7, Chloride Level 106, Carbon Dioxide Level 26, Anion Gap 8, Blood Urea Nitrogen 14, Creatinine 0.91, Estimat Glomerular Filtration Rate 67, BUN/Creatinine Ratio 15, Glucose Level 145H, Calcium Level 8.9, Corrected Calcium 9.2, Magnesium Le iesha 2.0, Total Bilirubin 0.3, Aspartate Amino Transf (AST/SGOT) 21, Alanine Aminotransferase (ALT/SGPT) 17, Alkaline Phosphatase 85, Myoglobin 41.6, Troponin I < 0.028, B-Type Natriuretic Peptide 122.6H, Total Protein 7.4, Albumin 3.6, Lipase 43 Radiology CXR 08/23/23 IMPRESSION: There is no radiographic evidence of acute cardiopulmonary process. Physical Exam-([facility]) Physical Exam Vital Signs VS - Last 72 Hours, by Label 08/23/23 08/23/23 08/23/23 08/23/23 14:55 17:41 18:00 18:01 Temp 36.5 Pulse 69 62 56 Resp 16 18 B/P (MAP) 184/83 (116) 158/79 Pulse Ox 98 96 99 O2 Delivery Room Air 08/23/23 08/23/23 08/23/23 19:29 20:08 20:35 Temp 36.1 Pulse 53 51 Resp 18 B/P (MAP) 145/87 (106) Pulse Ox 95 96 O2 Delivery Room Air Room Air Capillary Refill : Less Than 3 Seconds General Appearance: WD/WN, no apparent distress HEENT: PERRL/EOMI, pharynx normal Neck: non-tender Respiratory: chest non-tender, lungs clear, normal breath sounds, no respiratory distress Cardiovascular: regular rate, rhythm, no edema Peripheral Pulses: 2+ Dorsalis Pedis (R), 2+ Left Dors-Pedis (L), 2+ Radial Pulses (R), 2+ Radial Pulses (L) Gastrointestinal: normal bowel sounds, non tender, soft Extremities: calf tenderness (right) Neurologic/Psychiatric: alert, oriented x 3 Skin: normal color, warm/dry Lymphatic: no adenopathy (cervical or supraclavicular ) Assessment/Plan Assessment/Plan (1) Chest pain Status: Acute Assessment & Plan: Sever chest pain that resolved with Nitroglycerin use. CXR (08/23) No pneumothorax and no evidence of acute cardiopulmonary process. CBC and CMP largely unremarkable. 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 continue home medication: gabapentin 600mg daily (3) Leg cramping Status: Chronic Assessment & Plan: Patient endorese near daily cramps in her legs for the last 2 weeks Continue home medication of Tizanadine PRN Clinical Quality Measures AMI/AHF: ASA po Prior to arrival: Yes (324) TRENA GIBBS MD 08/23/238: Home Medications Allergies Coded Allergies: levofloxacin (Verified Allergy, Unknown, 02/03/16) Uncoded Allergies: plastic tape (Allergy, Mild, 02/03/16) Supervisory-Addendum Brief Verification & Attestation Participated in pt care: history, MDM, physical Personally performed: exam, history, MDM, supervision of care Care discussed with: Medical Student Procedures: n/a I personally performed or re-performed the history, physical exam and treatment for the E/M. I discussed the case with the Medical Student, and concur with the Medical Student documentation of history, physical exam and treatment plan unless otherwise noted. MITCH MCCLELLAND Aug 23, 2023 17:49 TRENA GIBBS MD Aug 23, 2023 22:08
[2023-08-23] MEDS ORDERED: morphine INJ 4 MG/ML 1 ML (VIAL/SYRINGE) IV PRN (18:45)
[2023-08-23] MEDS ORDERED: PATIENT MAY USE OWN MEDS, ALL PO SCH (18:45)
[2023-08-23] MEDS ORDERED: ONDANSETRON INJECTION 4 MG/2 ML (SDV) IVP PRN (18:45)
[2023-08-23] MEDS ORDERED: NITROGLYCERIN 0.4 MG SL TABLETS BTL 25'S SL PRN (18:45)
[2023-08-23] MEDS ORDERED: NAPR-1088 PO (19:45)
[2023-08-23 20:08] VITALS: BP 145/87
[2023-08-23 23:36] VITALS: BP 123/39
[2023-08-24 07:16] VITALS: BP 141/74
--- NOTE | 2023-08-24 08:00 | Progress Note ---
MITCH MCCLELLAND 08/24/23 0800: Subjective Subjective/Events-last exam Patient is feeling good this morning. She has no chest pain this morning and had none last night. Patient does have a headaches this morning and has received nothing to help it. Patient has not had her deep leg cramping that she normally has but did have a cramp in her upper leg this morning during the exam. Review of Systems General: No Chills, No Night Sweats HEENT: Head Aches; No Visual Changes, No Dysphasia Pulmonary: No Dyspnea, No Cough Cardiovascular: No: Chest Pain, Palpitations, Edema, Lt Headedness Gastrointestinal: No: Nausea, Vomiting, Abdominal Pain, Diarrhea, Constipation Genitourinary: No Dysuria Musculoskeletal: other, back pain (she thinks due to laying in the bed for so long. ), leg pain Neurological: Numbness (in her feet (chronic)) Objective Exam Last Set of Vital Signs Vital Signs Date Time Temp Pulse Resp B/P (MAP) Pulse Ox O2 Delivery O2 Flow Rate FiO2 08/24/23 07:16 35.6 54 13 141/74 (96) 96 Room Air Capillary Refill : Less Than 3 Seconds I&O Intake and Output 08/24/23 00:00 Intake Total 150 ml Balance 150 ml Intake Oral 150 ml # Voids 1 Daily Weight Change No General: Alert, Oriented X3 HEENT: PERRLA, EOMI, Mucous Memb Moist/[place] Lungs: Clear to Auscultation, Normal Air Movement Heart: Other (bradicardic ) Abdomen: Normal Bowel Sounds, Soft, No Tenderness Extremities: Normal Pulses, Other (tenderness to palpation deep in the right calf muscles ) Skin: No Rashes Results/Procedures Lab Laboratory Tests 08/23/23 15:00: White Blood Count 6.1, Red Blood Count 4.86, Hemoglobin 14.2, Hematocrit 44, Mean Corpuscular Volume 90, Mean Corpuscular Hemoglobin 29, Mean Corpuscular Hemoglobin Concent 33, Red Cell Distribution Width 12.3, Platelet Count 198, Mean Platelet Volume 10.1, Immature Granulocyte % (Auto) 0, Neutrophils (%) (Auto) 50, Lymphocytes (%) (Auto) 38, Monocytes (%) (Auto) 8, Eosinophils (%) (Auto) 3, Basophils (%) (Auto) 1, Neutrophils # (Auto) 3.0, Lymphocytes # (Auto) 2.3, Monocytes # (Auto) 0.5, Eosinophils # (Auto) 0.2, Basophils # (Auto) 0.1, Immature Granulocyte # (Auto) 0.0, Prothrombin Time 12.7, INR Comment 0.9, Activated Partial Thromboplast Time 23L, Sodium Level 140, Potassium Level 3.7, Chloride Level 106, Carbon Dioxide Level 26, Anion Gap 8, Blood Urea Nitrogen 14, Creatinine 0.91, Estimat Glomerular Filtration Rate 67, BUN/Creatinine Ratio 15, Glucose Level 145H, Calcium Level 8.9, Corrected Calcium 9.2, Magnesium Leve l 2.0, Total Bilirubin 0.3, Aspartate Amino Transf (AST/SGOT) 21, Alanine Aminotransferase (ALT/SGPT) 17, Alkaline Phosphatase 85, Myoglobin 41.6, Troponin I < 0.028, B-Type Natriuretic Peptide 122.6H, Total Protein 7.4, Albumin 3.6, Lipase 43 08/23/23 23:20: Troponin I < 0.028, D-Dimer 2.05H Radiology CXR 08/23/23 IMPRESSION: There is no radiographic evidence of acute cardiopulmonary process. CT Chest IMPRESSION: 1. No pulmonary embolus. 2. No other acute cardiopulmonary process. 3. Small 4 mm micronodule of the right upper lobe. If patient is in a high-risk category, such as history of smoking, one-year followup could be performed to ensure stability. Assessment/Plan Assessment/Plan (1) Chest pain Status: Acute Assessment & Plan: Sever chest pain that resolved with Nitroglycerin use. CXR (08/23) No pneumothorax and no evidence of acute cardiopulmonary process. CBC and CMP largely unremarkable. repeat troponin <.028 EKG shows sinus rhythm with left bundle branch block (chronic when compared to EKG in april) D dimer elevated but CT chest negative for PE. Patient complaining of SAUCEDO today Plan: Start Tylenol as needed for headaches Bradycardia on metoprolol. Would appreciate recommendation regarding metoprolol Continue PRN morphine and nitroglycerin Zofran PRN for nausea Start PPI for potential GERD Qualifiers: Qualified Codes: R07.9 - Chest pain, unspecified (2) Lung nodule seen on imaging study Status: Acute Assessment & Plan: Small 4 mm micronodule of the right upper lobe. Patient has a history of smoking 1 PPD Recommend follow up imaging in a year to monitor size. 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 continue home medication: gabapentin 600mg daily (4) Leg cramping Status: Chronic Assessment & Plan: Patient endorese near daily cramps in her legs for the last 2 weeks Continue home medication of Tizanadine PRN Clinical Quality Measures AMI/AHF: ASA po Prior to arrival: Yes (324) TRENA GIBBS MD 08/24/232035: Supervisory-Addendum Brief Verification & Attestation Participated in pt care: history, MDM, physical Personally performed: exam, history, MDM, supervision of care Care discussed with: Medical Student Procedures: n/a I personally performed or re-performed the history, physical exam and treatment for the E/M. I discussed the case with the Medical Student, and concur with the Medical Student documentation of history, physical exam and treatment plan unless otherwise noted. MITCH MCCLELLAND Aug 24, 2023 08:00 TRENA GIBBS MD Aug 24, 2023 20:36
[2023-08-24] MEDS ORDERED: NS 100 ML (IVPB) BAG IV ONE (08:15)
[2023-08-24] MEDS ORDERED: IOHEXOL 350 MG/ML 100 ML (OMNIPAQUE 350) VIAL IV ONE (08:15)
[2023-08-24] MEDS: ASPIRIN enteric coated 81MG TABLET PO SCH (08:44)
--- NOTE | 2023-08-24 09:26 | Diagnostic Imaging Report ---
INDICATION: Chest pain. Elevated D-dimer. COMPARISON: None TECHNIQUE: Routine postcontrast CTA of the chest was performed. Contrast was injected intravenously in time for optimal opacification of the arterial structures. Multiplanar and 3-D reformats were also created and reviewed. Auto Exposure Controls were utilized during the CT exam to meet ALARA standards for radiation dose reduction. FINDINGS: No abnormal intraluminal filling defect is seen within the pulmonary arteries to the 1st subsegmental division. Thoracic aorta is suboptimally opacified, but appears to be appropriate in size and contour. By NASCET criteria, there is no focal significant stenosis. There is no evidence of dissection or aneurysm. Heart size is within normal limits. There is moderate calcified coronary atherosclerosis. No pathologically enlarged or morphologically abnormal adenopathy is seen within the mediastinum, kika, nor axilla. 4 mm subpleural micronodule is noted within the posterior margins of the right upper lobe (image 43, series 3). Otherwise, lungs are clear. There is no focal consolidation, large effusion, no pneumothorax. Osseous structures show no acute abnormalities. No osteolytic or blastic bony lesions are seen. Included portions of the upper abdomen are unremarkable as well. IMPRESSION: 1. No pulmonary embolus. 2. No other acute cardiopulmonary process. 3. Small 4 mm micronodule of the right upper lobe. If patient is in a high-risk category, such as history of smoking, one-year followup could be performed to ensure stability. Dictated by: Dictated on workstation # [id number]
--- NOTE | 2023-08-24 09:37 | Consultation-Cardiology ---
HPI-Cardiology Cardiology Consultation: Date of Consultation 08/24/23 Time Seen by a Provider: 09:25 Date of Admission Attending Physician Cristhian Valadez MD Admitting Physician Admitting Physician: Mechelle Avina MD Attending Physician: Mechelle Avina MD Consulting Physician ANGY RIDDLE MD, MA, FACP, FACC, FSCAI, CCDS Physician requesting consult: Dr Avina HPI: Chief Complaint: Chest discomfort 73 yo woman with sudden onset of chest pain on 08/23/23: R parasternal radiating to the back and the R shoulder and R jaw, sharp, moderate, w/o relation to breathing, lasting 15 min, not associated with other symptoms, took 's nitro, called EMT, another nitro in the ambulance, nausea and headache after taking nitro, not experienced before. No recurrence after resolution. No other chest pain. No shortness of breath. No palp or syncope. No leg swelling (other than is she is on them for a long time). No fever or chills. Review of Systems-Cardiology Review of Systems Constitutional: As described under HPI Eyes: No vision change Ears/Nose/Throat: No ear discharge, No nasal drainage, No recent hearing loss, No ulcerations Respiratory: As described under HPI Cardiovascular: As described under HPI Gastrointestinal: As described under HPI Genitourinary: No dysuria, No hematuria, No urine frequency changes Musculoskeletal: back pain (chroni), joint pain (chronic) Skin: No rash, No ulcerations Psychiatric/Neurological: No seizure, No focal weakness, No syncope Hematologic: No bleeding abnormalities All Other Systems Reviewed Negative Unless Noted: Yes VPR-Tfsabx-Umxgns Hx Patient Social History Smoking Status: Current Everyday Smoker (1 PPD ) 2nd Hand Smoke Exposure: Yes Alcohol Use?: No Pt feels they are or have been: No Tobacco type used: Cigarettes Immunizations Up To Date Date of Influenza Vaccine: Aug 11, 2023 Past Medical History PMH As described under Assessment. Family Medical History Family Medical History: Father had NM at age 82 Mother had coronary in her 80s Allergies and Home Medications Allergies Coded Allergies: levofloxacin (Verified Allergy, Unknown, 02/03/16) Uncoded Allergies: plastic tape (Allergy, Mild, 02/03/16) Patient Home Medication List Home Medication List Reviewed: Yes Gabapentin (Gabapentin) 300 Mg Capsule, 600 MG PO HS, (Reported) Entered as Reported by: KWAN TSE on 06/19/181599 Last Action: Held Hydrocodone/Acetaminophen (Hydrocodone-Acetamin 5-325 mg) 1 Each Tablet, 1 TAB PO TID, (Reported) Entered as Reported by: LUDIN MA on 12/06/21 0963 Last Action: Held Naproxen (Naproxen) 250 Mg Tablet, 220 MG PO BID PRN for PAIN, (Reported) Entered as Reported by: CHRISTINE ADAME on 08/23/231944 Last Action: Held Omeprazole (Omeprazole) 20 Mg Capsule., (Reported) Entered as Reported by: KWAN TSE on 06/19/181599 Last Action: Held Tizanidine HCl (Tizanidine HCl) 2 Mg Tablet, (Reported) Entered as Reported by: KWAN TSE on 06/19/181599 Last Action: Held Discontinued Medications Diclofenac Sodium (Diclofenac Sodium) 50 Mg Tablet., (Reported) Discontinued Reason: No Longer Taking Entered as Reported by: KWAN TSE on 06/19/181599 Last Action: Discontinued Ondansetron (Ondansetron Odt) 4 Mg Tab.rapdis, 4 MG PO Q4H Discontinued Reason: No Longer Taking Prescribed by: ABNER VALENTIN on 04/21/232020 Last Action: Discontinued Physical Exam-Cardiology Physical Exam Vital Signs/I&O 08/23/23 08/24/23 08/24/23 08/24/23 23:36 00:56 03:29 07:00 Temp 36.0 36.1 Pulse 53 49 48 Resp 21 B/P (MAP) 123/39 (67) Pulse Ox 95 08/24/23 07:16 Temp 35.6 Pulse 54 Resp 13 B/P (MAP) 141/74 (96) Pulse Ox 96 O2 Delivery Room Air 08/23/23 23:59 Intake Total 150 ml Balance 150 ml Capillary Refill : Less Than 3 Seconds Constitutional: AAO x 3, well-developed, well-nourished HEENT: EOMI, hearing is well preserved; No xanthelasmas are seen Neck: No carotid bruit; carotid pulses are 2 + bilaterally, with good upstrokes Respiratory: accessory muscle use, chest expansion is symmetric, chest is bilaterally symmetric, other (good, bilateral air entry) Cardiovascular: regular rate-rhythm, S1 and S2, systolic murmur (soft CONNIE at card base) Gastrointestinal: No tender; soft; No guarding, No rebound; audible bowel sounds Extremities: No clubbing, No cyanosis, No significant edema Neurologic/Psychiatric: oriented x 3, other (moves all limbs equally) Skin: No rash on exposed areas, No ulcerations on exposed areas Lymphatic: no adenopathy (cervical or supraclavicular ) Data Review Labs Laboratory Tests 08/23/23 15:00: White Blood Count 6.1, Red Blood Count 4.86, Hemoglobin 14.2, Hematocrit 44, Mean Corpuscular Volume 90, Mean Corpuscular Hemoglobin 29, Mean Corpuscular Hemoglobin Concent 33, Red Cell Distribution Width 12.3, Platelet Count 198, Mean Platelet Volume 10.1, Immature Granulocyte % (Auto) 0, Neutrophils (%) (Auto) 50, Lymphocytes (%) (Auto) 38, Monocytes (%) (Auto) 8, Eosinophils (%) (Auto) 3, Basophils (%) (Auto) 1, Neutrophils # (Auto) 3.0, Lymphocytes # (Auto) 2.3, Monocytes # (Auto) 0.5, Eosinophils # (Auto) 0.2, Basophils # (Auto) 0.1, Immature Granulocyte # (Auto) 0.0, Prothrombin Time 12.7, INR Comment 0.9, Activated Partial Thromboplast Time 23L, Sodium Level 140, Potassium Level 3.7, Chloride Level 106, Carbon Dioxide Level 26, Anion Gap 8, Blood Urea Nitrogen 14, Creatinine 0.91, Estimat Glomerular Filtration Rate 67, BUN/Creatinine Ratio 15, Glucose Level 145H, Calcium Level 8.9, Corrected Calcium 9.2, Magnesium Level 2.0, Total Bilirubin 0.3, Aspartate Amino Transf (AST/SGOT) 21, Alanine Aminotransferase (ALT/SGPT) 17, Alkaline Phosphatase 85, Myoglobin 41.6, Troponin I < 0.028, B-Type Natriuretic Peptide 122.6H, Total Protein 7.4, Albumin 3.6, Lipase 43 08/23/23 23:20: Troponin I < 0.028, D-Dimer 2.05H Laboratory Tests 08/23/23 15:00 A/P-Cardiology Assessment/Admission Diagnosis Non-specific chest pain - no evidence of ac cor syndrome Hypertension Abnormal ECG: Chronic LBBB Chronic tobacco use (1ppd for more than 50 years) GERD CT angio chest on 08/24/23 - no PE - Small 4 mm micronodule of the right upper lobe (management by Dr Avina) Discussion and Recomendations * Given non-specific chest discomfort in the setting of cor risk factors, we recommend a noninvasive cardiac w/u: Echo and MPI * Advised to quit smoking * Risk factor mod reviewed * Monitor labs * She says she does not wish to stay for stress test. Wants to do it as an outpatient if she does it. Clinical Quality Measures AMI/AHF: ASA po Prior to arrival: Yes (324) ANGY RIDDLE MD FACP FAC CCDS Aug 24, 2023 09:37
[2023-08-24] MEDS ORDERED: TIZA-186 PO (10:01)
[2023-08-24] MEDS ORDERED: GABA300C PO (10:02)
[2023-08-24] MEDS ORDERED: NAPR220T66 PO (10:03)
[2023-08-24 11:40] VITALS: BP 162/72
[2023-08-24] MEDS ORDERED: ACETAMINOPHEN 325 MG TABLET PO PRN (11:45)
[2023-08-24 16:47] VITALS: BP 142/67
[2023-08-24 19:15] VITALS: BP 129/83
[2023-08-24] MEDS ORDERED: GABAPENTIN 300 MG CAPSULE PO SCH (21:00)
[2023-08-24 21:16] VITALS: BP 146/72
[2023-08-24 23:46] VITALS: BP 147/67
[2023-08-25 03:57] VITALS: BP 132/74
[2023-08-25 06:55] LABS: CHOLESTEROL 198 MG/DL (< 200); HDL CHOLESTEROL 44 MG/DL (40-60); TRIGLYCERIDES 101 MG/DL (<150); VLDL CHOLESTEROL 20 MG/DL (5-40)
[2023-08-25 07:31] VITALS: BP 134/78
--- NOTE | 2023-08-25 08:52 | Progress Note - Cardiology ---
Cardiology SOAP Progress Note Subjective: Sitting up in bed No further c/o CP or SOB She has thought it over and wishes to do the stress test today rather than as an out patient Objective: I&O/Vital Signs Weight (Pounds): 200 Weight (Ounces): 0 Weight (Calculated Kilograms): [id number] Constitutional: AAO x 3, well-developed, well-nourished Respiratory: accessory muscle use, chest expansion is symmetric, chest is bilaterally symmetric, other Cardiovascular: regular rate-rhythm, S1 and S2, systolic murmur Gastrointestional: soft, audible bowel sounds Extremities: No clubbing, No cyanosis, No significant edema Neurologic/Psychiatric: oriented x 3, other Skin: No rash on exposed areas, No ulcerations on exposed areas Results/Procedures: Labs A/P: Assessment: Non-specific chest pain - no evidence of ac cor syndrome Hypertension HLD - LDL greater than 150 - advise statin Abnormal ECG: Chronic LBBB Chronic tobacco use (1ppd for more than 50 years) [address] CT angio chest on 08/24/23 - no PE - Small 4 mm micronodule of the right upper lobe (management by Dr Avina) Plan: * Given non-specific chest discomfort in the setting of cor risk factors, we rec ommend a noninvasive cardiac w/u: Echo and MPI * Advised to quit smoking * Risk factor mod reviewed * Monitor labs * LDL greater than 150 - advise statin * Echocardiogram results pending * She is agreeable to MPI today Clinical Quality Measures AMI/AHF: ASA po Prior to arrival: Yes (324) MARIAN CARMICHAEL Aug 25, 2023 08:52
[2023-08-25] MEDS: ASPIRIN enteric coated 81MG TABLET PO SCH (09:48)
[2023-08-25 11:07] VITALS: BP 136/75
[2023-08-25] MEDS ORDERED: REGADENOSON 0.4 MG/5 ML SYR IV ONE ×2 (12:43→12:45)
[2023-08-25 12:50] VITALS: BP 165/68
[2023-08-25] MEDS ORDERED: ROSU10TA28 PO (14:41)
--- NOTE | 2023-08-25 15:38 | Progress Note - Cardiology ---
Cardiology SOAP Progress Note Subjective: No cp or palp or syncope No n/v/d No gen weakness No focal weakness Wishes to go home Objective: I&O/Vital Signs 08/25/23 08/25/23 08/25/23 08/25/23 03:57 07:00 07:31 08:00 Temp 36.6 36.7 Pulse 43 43 52 Resp 16 16 B/P (MAP) 132/74 (93) 134/78 (96) Pulse Ox 95 94 O2 Delivery Room Air Room Air Room Air 08/25/23 08/25/23 08/25/23 11:07 12:50 13:45 Temp 35.9 Pulse 45 51 51 Resp 16 B/P (MAP) 136/75 (95) 165/68 (100) Pulse Ox 94 O2 Delivery Room Air 08/24/23 23:59 Intake Total 1615 ml Balance 1615 ml Weight (Pounds): 200 Weight (Ounces): 0 Weight (Calculated Kilograms): [id number] Constitutional: AAO x 3, well-developed, well-nourished Respiratory: accessory muscle use, chest expansion is symmetric, chest is bilaterally symmetric, other Cardiovascular: regular rate-rhythm, S1 and S2, systolic murmur Gastrointestional: soft, audible bowel sounds Extremities: No clubbing, No cyanosis, No significant edema Neurologic/Psychiatric: oriented x 3, other Skin: No rash on exposed areas, No ulcerations on exposed areas Results/Procedures: Labs Laboratory Tests 08/25/23 05:50: Triglycerides Level 101, Cholesterol Level 198, LDL Cholesterol Direct 156H, VLDL Cholesterol 20, HDL Cholesterol 44 A/P: Assessment: Non-specific chest pain, resolved, no recurrence - no evidence of ac cor syndrome - MPI of 08/25/23: no ischemia or infarction Mild, nonischemic cardiomyopathy - Echo on 08/24/23: LVEF 40-45%, mild conc LVH, mild MR, AoV sclerosis vs very mild stenosis - MPI on 10/26/22: LVEF 41%, no ischemia or infarction Hypertension HLD - LDL greater than 150 - advise statin Abnormal ECG: Chronic LBBB Chronic tobacco use (1ppd for more than 50 years) GERD CT angio chest on 08/24/23 - no PE - Small 4 mm micronodule of the right upper lobe (management by Dr Avina) Plan: * Advised to quit smoking * Risk factor mod reviewed * Advised treatment of hypertension and advised sleep studies as oupt * Treat with bb and KELTON-inhib and have f/u labs with pcp in 1-2 weeks * LDL greater than 150 - advised statin * Discussed with patient. Discussed with Dr Avina * Outpt Cardiology f/u also advised Clinical Quality Measures AMI/AHF: ASA po Prior to arrival: Yes (324) ANGY RIDDLE MD FACP FAC CCDS Aug 25, 2023 15:38
[2023-08-25] MEDS ORDERED: LISI10TA25 PO (15:47)
[2023-08-25] MEDS ORDERED: METO-351 PO (15:47)
[2023-08-25] MEDS ORDERED: ASPI-1238 PO (15:47)
--- NOTE | 2023-08-25 15:48 | Discharge Summary ---
Discharge Inst-[facility] Discharge Medications New, Converted or Re-Newed RX: Transmitted to Pharmacy New Medications: Lisinopril (Lisinopril) 10 Mg Tablet 10 MG PO DAILY, #30 TAB 0 Refills Metoprolol Succinate (Toprol Xl) 25 Mg Tab.er.24h 25 MG PO DAILY, #30 TAB 0 Refills Aspirin (Aspirin EC) 81 Mg Tablet.dr 81 MG PO DAILY, #30 TAB 0 Refills Rosuvastatin Calcium (Rosuvastatin Calcium) 10 Mg Tablet 10 MG PO HS, #30 TAB 0 Refills Continued Medications: Gabapentin (Neurontin) 300 Mg Capsule 600 MG PO HS, CAP TAKES 2 (300MG) CAPS Hydrocodone/Acetaminophen (Hydrocodone-Acetamin 5-325 mg) 5 Mg-325 Mg Tablet 1 EA PO TID PRN for PAIN-MILD TO MODERATE, TAB Omeprazole (Omeprazole) 20 Mg Capsule.dr 20 MG PO DAILY Tizanidine HCl (Tizanidine HCl) 4 Mg Tablet 4 MG PO TID PRN for MUSCLE CRAMPS, TAB Discontinued Medications: Naproxen Sodium (Aleve) 220 Mg Tablet 440 MG PO Q6H PRN for PAIN-MILD (1-4), TAB TAKES 2 (220MG) TABS Patient Instructions Goal/Follow Up Appt: Follow up with primary at [facility] within a week, you will need to have labs drawn to check your electrolytes since starting lisinopril. You should also discuss setting up a sleep study. Follow up with Dr. Taylor in mid September. [facility]: Shortness of breath, weakness, palpitations, persistent chest pain Activity & Diet Discharge Diet: Cardiac Diet TRENA GIBBS MD Aug 25, 2023 15:48
[2023-08-25 16:34] VITALS: BP 165/68
--- NOTE | 2023-08-25 16:51 | Discharge Summary ---
MITCH MCCLELLAND 08/25/23 1605: Discharge Summary Hospital Course Problems/Diagnosis: (1) CHF (congestive heart failure) Assessment & Plan: Follow up outpatient with cardiology. EF 40-45% Patient started on lisinopril 10mg metoprolol 25mg Qualifiers: Qualified Codes: I50.20 - Unspecified systolic (congestive) heart failure (2) Chest pain Status: Acute Assessment & Plan: Sever chest pain that resolved with Nitroglycerin use. CXR (08/23) No pneumothorax and no evidence of acute cardiopulmonary process. CBC and CMP largely unremarkable. repeat troponin <.028 EKG shows sinus rhythm with left bundle branch block (chronic when compared to EKG in april) D dimer elevated but CT chest negative for PE. Plan: Continue PRN morphine and nitroglycerin Zofran PRN for nausea Continue omeprazole for hx of GERD Qualifiers: Qualified Codes: R07.9 - Chest pain, unspecified (3) Lung nodule seen on imaging study Status: Acute Assessment & Plan: Small 4 mm micronodule of the right upper lobe. Patient has a history of smoking 1 PPD Recommend follow up imaging in a year to monitor size. 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 Patient was given nitroglycerin, aspirin 324mg. Patient's repeat troponin were below 0.028 and EKG showed chronic LBBB. Patient's D-dimer was elevated but CT chest showed no evidence of PE. CT did show a 4mm nodule and repeat imaging in a year is recommended to evaluate for change. Patient did have elevated LDL cholesterol and started on rosuvastatin. TTE was performed inpatient and per report showed LV EF of 40-45%, mild regurgitation of the mitral valve and very mild aortic valve stenosis. Stress echo showed EF of 40-45% and no evidence of ischemia. Patient was started on metoprolol 50mg which caused her HR to decreased to the 40s and prior to discharge her metoprolol was decreased to 25mg. She was also started on lisinopril 10mg. outpatient polysomnography is recommended due to new diagnosis of CHF. Patient recommended to follow up with cardiology. Labs and Pending Lab Test: Laboratory Tests 08/25/23 05:50: Triglycerides Level 101, Cholesterol Level 198, LDL Cholesterol Direct 156H, V LDL Cholesterol 20, HDL Cholesterol 44 Home Meds Active Toprol Xl (Metoprolol Succinate) 25 Mg Tab.er.24h 25 Mg PO DAILY Lisinopril 10 Mg Tablet 10 Mg PO DAILY Aspirin EC (Aspirin) 81 Mg Tablet.dr 81 Mg PO DAILY Rosuvastatin Calcium 10 Mg Tablet 10 Mg PO HS Reported Neurontin (Gabapentin) 300 Mg Capsule 600 Mg PO HS TAKES 2 (300MG) CAPS Tizanidine HCl 4 Mg Tablet 4 Mg PO TID PRN Hydrocodone-Acetamin 5-325 mg (Hydrocodone/Acetaminophen) 5 Mg-325 Mg Tablet 1 Ea PO TID PRN Omeprazole 20 Mg Capsule.dr 20 Mg PO DAILY Discharge Physical Examination Allergies: Coded Allergies: levofloxacin (Verified Allergy, Unknown, 02/03/16) Uncoded Allergies: plastic tape (Allergy, Mild, 02/03/16) General Appearance: No Apparent Distress, WD/WN HEENT: PERRL/EOMI Respiratory: Lungs Clear, Normal Breath Sounds, No Respiratory Distress Cardiovascular: No Edema, Normal Peripheral Pulses, Bradycardia Gastrointestinal: Normal Bowel Sounds, Non Tender, Soft Extremity: No Pedal Edema, Calf Tenderness (right posterior calf ) Skin: Normal Color, Warm/Dry Neurologic/Psychiatric: Alert, Oriented x3 Discharge Summary Date of Admission Aug 23, 2023 at 17:35 Discharge Date: Aug 25, 2023 Admission Diagnosis unspecified chest pain Consults/Procedures Consulations cardiology Procedures JEAN-PIERRE Stress Echo Discharge Diagnosis CHF Clinical Quality Measures AMI/AHF: ASA po Prior to arrival: Yes (324) TRENA GIBBS MD 08/26/23 1016: Discharge Summary Hospital Course Assessment/Pt DC Instructions Follow up with primary provider within a week of discharge. Follow up with Cardiology in mid-September. Discharge Physical Examination Allergies: Coded Allergies: levofloxacin (Verified Allergy, Unknown, 02/03/16) Uncoded Allergies: plastic tape (Allergy, Mild, 02/03/16) Supervisory-Addendum Brief Verification & Attestation Participated in pt care: history, MDM, physical Personally performed: exam, history, MDM, supervision of care Care discussed with: Medical Student Procedures: n/a I personally performed or re-performed the history, physical exam and treatment for the E/M. I discussed the case with the Medical Student, and concur with the Medical Student documentation of history, physical exam and treatment plan unless otherwise noted. MITCH MCCLELLAND Aug 25, 2023 16:05 TRENA GIBBS MD Aug 26, 2023 10:16
[2023-08-25] MEDS ORDERED: ROSUVASTATIN 10 MG TABLET PO SCH (21:00)
--- NOTE | 2023-08-25 21:15 | STRESS TEST ---
DATE OF SERVICE: 08/25/2023 RESTING AND POST EXERCISE TECHNETIUM-99M TETROFOSMIN SPECT CT IMAGING: CLINICAL DIAGNOSIS: Baseline myocardial perfusion imaging was carried out after injection of 10.99 mCi of technetium-99m tetrofosmin. This was followed by 0.4 mg regadenoson and 31.9 mCi of technetium-99m tetrofosmin for stress imaging. The electrocardiogram showed sinus rhythm with left bundle branch block and premature atrial contractions during the study. The electrocardiogram did not change significantly with the regadenoson infusion. The patient noted some nausea following regadenoson infusion, which resolved in a few minutes. Review of images at rest and following stress does not indicate any distinct perfusion defects consistent with significant myocardial ischemia or infarction. Gated images do not show any regional wall motion abnormality. Left ventricular ejection fraction is calculated to be 41%. CONCLUSIONS: 1. No evidence of significant myocardial ischemia or infarction on this study. 2. No regional wall motion abnormality. 3. Left ventricular ejection fraction 41%. Job ID: [id number] DocumentID: [id number] Dictated Date: 08/25/2023 15:10:20 Conference Service Coordinator Date: 08/25/2023 21:12:00 Dictated By: ANGY RIDDLE MD; IBIS; FACP; FACC;
== END 2023-08-25 15:45 | disposition home or self-care (01) ==
LOC: EDUNIT# 14:48 → ER 14:49 → CSD 17:35 → UNDOADMOB 17:35 → CSD 18:50 → 4TH 08-24 16:42 → CSD 08-24 16:42 → UNDODISOB 08-25 16:41
PROVIDERS: ADMIT Family Medicine; ATTEND Family Medicine
DX: I11.0 Hypertensive heart disease with heart failure (principal); I50.9 Heart failure, unspecified; R07.9 Chest pain, unspecified; R91.1 Solitary pulmonary nodule; G62.9 Polyneuropathy, unspecified; R25.2 Cramp and spasm; I42.8 Other cardiomyopathies; E78.5 Hyperlipidemia, unspecified; I44.7 Left bundle-branch block, unspecified; K21.9 Gastro-esophageal reflux disease without esophagitis; F17.210 Nicotine dependence, cigarettes, uncomplicated; Z79.899 Other long term (current) drug therapy
CPT/HCPCS: 71045; 71275; 78452; 80053; 80061; 83690; 83735; 83874; 83880; 84484; 85025; 85379; 85610; 85730; 93005 ×2; 93017; 93041; 99284; A9502; C8929; 36415; 93306; 96375; G0378